=== PATIENT | female | born 1935 | race Caucasian/White ===

== ENCOUNTER 2024-04-21 17:34 | Emergency (ER) | payer MEDICARE, BC ==
[~2024-04-21] VITALS: Ht 152.4 cm; Wt 53.1 kg
[~2024-04-21 17:34] MED LIST: AZIT250 PO; CELE200 PO; DIALYVITE 8001 EACH; ENOX30I SQ; ERGO50000; HYDACE5 PO; HYDACE5325 PO; IVERMECTIN3 MG PO; ONDA4 PO; ONDA4ODT MM; ONE DAILY FOR1 EACH; OXYACE5T PO; PROM25 PO
[2024-04-21] MEDS ORDERED: NS 500 ML IV SCH (18:20)
[2024-04-21 18:52] LABS: BASOPHILS ABSOLUTE AUTO 0.01 K/mm3 (0.00-0.23); BASOPHILS PERCENT AUTO 0 % (0-2); EOSINOPHILS ABSOLUTE AUTO 0.01 K/mm3 (0.00-0.68); EOSINOPHILS PERCENT AUTO 0 % (0-6); Hematocrit 32.2 % (33.0-51.0); Hemoglobin 10.8 g/dL (11.5-16.0); IMMATURE GRAN ABSOLUTE AUTO 0.07 K/mm3 (0.00-0.10); IMMATURE GRAN PERCENT AUTO 1 % (0-1); LYMPHOCYTES ABSOLUTE AUTO 0.82 K/mm3 (0.84-5.20); LYMPHOCYTES PERCENT AUTO 7 % (21-46); MONOCYTES PERCENT AUTO 11 % (4-13); Mean Corpuscular HGB 29.5 pg (26.0-34.0); Mean Corpuscular HGB Conc 33.5 g/dL (31.5-36.5); Mean Corpuscular Volume 88 fL (80-100); Mean Platelet Volume 9.7 fL (9.1-12.4); NEUTROPHILS ABSOLUTE AUTO 10.34 K/mm3 (1.96-9.15); NEUTROPHILS PERCENT AUTO 82 % (41-73); Platelet Count 294 K/mm3 (150-400); RDW Coefficient Variation 15.9 % (11.7-14.2); Red Blood Cell Count 3.66 M/mm3 (3.80-5.20); White Blood Cell Count 12.65 K/mm3 (4.00-11.30)
[2024-04-21] MEDS ORDERED: ACET325 PO (18:52)
[2024-04-21 19:05] LABS: Source, Urine Clean Catch
[2024-04-21 19:11] LABS: Bun/Creatinine Ratio 27.7 (12.0-20.0); Calcium, Blood 10.3 mg/dL (8.5-10.1); Creatinine, Blood 0.87 mg/dL (0.40-1.00); Potassium, Blood 4.6 mmol/L (3.5-5.5)
[2024-04-21 19:13] LABS: Appearance, Urine Hazy (Clear); Bilirubin, Urine Neg (Neg); Blood, Urine 4+ (Neg); Color, Urine Yellow (P-Yellow); Glucose Qualitative, Urine Neg (Neg); Ketones, Urine Neg (Neg); Leukocyte Esterase, Urine 3+ (Neg); Nitrite, Urine Neg (Neg); Protein, Urine 2+ (Neg); Urobilinogen, Urine NORM (Normal)
[2024-04-21 19:21] LABS: Bacteria Mod /hpf; Calcium Oxalate Crystals Many /hpf; Red Blood Cells, Urine 0-2 /hpf (0-2); Squamous Epithelial Cells Few /hpf (Few)
[2024-04-21 19:35] LABS: CORONAVIRUS COVID-19 AG Negative (NEGATIVE); INFLUENZA A AG Negative (NEGATIVE); INFLUENZA B AG Negative (NEGATIVE)
[2024-04-21] MEDS ORDERED: Ipratropium/Albuterol SulF 2.5-0.5MG/3 ML Amp INH ONE (21:00)
[2024-04-21] MEDS ORDERED: CefTRIAXone Sodium 1,000 MG in NS 100 ML IV ONE (21:00)
[2024-04-21] MEDS ORDERED: Mag Sulfate 1 GM/D5% 100ML 100 ML IV ONE (21:00)
[2024-04-21] MEDS ORDERED: LEVFLO500 PO (22:27)
[2024-04-21] MEDS ORDERED: LEVOFLOXACIN250 M1 PO (22:30)
[2024-04-21 22:45] VITALS: BP 120/55
== END 2024-04-21 22:51 | disposition home or self-care (01) ==
LOC: ER 17:34
PROVIDERS: Emergency Medicine
DX: R91.8 Other nonspecific abnormal finding of lung field (principal); N39.0 Urinary tract infection, site not specified; E86.0 Dehydration; E87.1 Hypo-osmolality and hyponatremia; Z87.891 Personal history of nicotine dependence; Z88.5 Allergy status to narcotic agent
CPT/HCPCS: 71260; 80048; 81001; 85025; 87086; 87428-QW; 93005; 93010; 94640; 94664; 96365-59; 96375; 99285-25; J0696; J3475; J7030; Q9967

== ENCOUNTER 2024-04-23 11:32 | Emergency (ER) | payer MEDICARE, BC ==
[~2024-04-23] VITALS: Ht 152.4 cm; Wt 53.1 kg
[~2024-04-23 11:32] MED LIST changes: +ACET325 PO; +LEVFLO500 PO; +LEVOFLOXACIN250 M1 PO
[2024-04-23 12:11] LABS: BASOPHILS ABSOLUTE AUTO 0.02 K/mm3 (0.00-0.23); BASOPHILS PERCENT AUTO 0 % (0-2); EOSINOPHILS PERCENT AUTO 0 % (0-6); Hematocrit 30.7 % (33.0-51.0); Hemoglobin 10.4 g/dL (11.5-16.0); IMMATURE GRAN ABSOLUTE AUTO 0.14 K/mm3 (0.00-0.10); IMMATURE GRAN PERCENT AUTO 1 % (0-1); LYMPHOCYTES ABSOLUTE AUTO 0.47 K/mm3 (0.84-5.20); LYMPHOCYTES PERCENT AUTO 3 % (21-46); MONOCYTES ABSOLUTE AUTO 1.28 K/mm3 (0.16-1.47); MONOCYTES PERCENT AUTO 9 % (4-13); Mean Corpuscular HGB 29.7 pg (26.0-34.0); Mean Corpuscular HGB Conc 33.9 g/dL (31.5-36.5); Mean Corpuscular Volume 88 fL (80-100); Mean Platelet Volume 9.2 fL (9.1-12.4); NEUTROPHILS ABSOLUTE AUTO 12.08 K/mm3 (1.96-9.15); NEUTROPHILS PERCENT AUTO 86 % (41-73); Platelet Count 308 K/mm3 (150-400); RDW Coefficient Variation 15.7 % (11.7-14.2); RDW Standard Deviation 50.7 fL (35.1-46.3); White Blood Cell Count 13.99 K/mm3 (4.00-11.30)
[2024-04-23 12:34] LABS: Albumin, Blood 2.2 g/dL (3.4-5.0); Albumin/Globulin Ratio 0.5 (0.8-1.8); Bilirubin, Total 0.5 mg/dL (0.1-1.0); Bun/Creatinine Ratio 16.9 (12.0-20.0); Creatinine, Blood 0.65 mg/dL (0.40-1.00); Globulin, Blood 4.1 g/dL (2.2-4.0); Potassium, Blood 3.7 mmol/L (3.5-5.5); Total Protein, Blood 6.3 g/dL (6.4-8.2)
[2024-04-23] MEDS ORDERED: NS 1,000 ML IV SCH (15:55)
[2024-04-23] MEDS ORDERED: Ipratropium/Albuterol SulF 2.5-0.5MG/3 ML Amp INH ONE (17:50)
[2024-04-23 18:15] VITALS: BP 122/68
== END 2024-04-23 18:43 | disposition home or self-care (01) ==
LOC: ER 11:32
PROVIDERS: Physician Assistant
DX: J18.1 Lobar pneumonia, unspecified organism (principal); E86.0 Dehydration; Z88.5 Allergy status to narcotic agent; Z79.899 Other long term (current) drug therapy
CPT/HCPCS: 71045; 80053; 85025; 93005; 93010; 94640; 94664; 99285-25; J7030

== ENCOUNTER 2024-04-25 23:03 | Inpatient (IN) | payer MEDICARE, BC ==
[~2024-04-25] VITALS: Ht 152.4 cm; Wt 56.1 kg
[2024-04-26] MEDS ORDERED: Ketorolac Tromethamine 30mg Vial IV ONE (01:00)
[2024-04-26 01:02] LABS: BASOPHILS ABSOLUTE AUTO 0.05 K/mm3 (0.00-0.23); BASOPHILS PERCENT AUTO 0 % (0-2); EOSINOPHILS ABSOLUTE AUTO 0.05 K/mm3 (0.00-0.68); EOSINOPHILS PERCENT AUTO 0 % (0-6); Hematocrit 37.2 % (33.0-51.0); Hemoglobin 12.5 g/dL (11.5-16.0); IMMATURE GRAN PERCENT AUTO 1 % (0-1); LYMPHOCYTES ABSOLUTE AUTO 0.64 K/mm3 (0.84-5.20); LYMPHOCYTES PERCENT AUTO 4 % (21-46); MONOCYTES ABSOLUTE AUTO 0.34 K/mm3 (0.16-1.47); MONOCYTES PERCENT AUTO 2 % (4-13); Mean Corpuscular HGB 29.4 pg (26.0-34.0); Mean Corpuscular HGB Conc 33.6 g/dL (31.5-36.5); Mean Corpuscular Volume 88 fL (80-100); Mean Platelet Volume 9.3 fL (9.1-12.4); NEUTROPHILS ABSOLUTE AUTO 13.57 K/mm3 (1.96-9.15); NEUTROPHILS PERCENT AUTO 92 % (41-73); Platelet Count 477 K/mm3 (150-400); RDW Coefficient Variation 15.9 % (11.7-14.2); RDW Standard Deviation 51.3 fL (35.1-46.3); Red Blood Cell Count 4.25 M/mm3 (3.80-5.20); White Blood Cell Count 14.85 K/mm3 (4.00-11.30)
[2024-04-26 01:21] LABS: Albumin, Blood 2.5 g/dL (3.4-5.0); Albumin/Globulin Ratio 0.5 (0.8-1.8); Bilirubin, Total 0.7 mg/dL (0.1-1.0); Bun/Creatinine Ratio 14.1 (12.0-20.0); Calcium, Blood 10.5 mg/dL (8.5-10.1); Creatinine, Blood 0.71 mg/dL (0.40-1.00); Globulin, Blood 4.7 g/dL (2.2-4.0); Potassium, Blood 3.9 mmol/L (3.5-5.5); Total Protein, Blood 7.2 g/dL (6.4-8.2)
[2024-04-26 02:52] LABS: International Normalized Ratio 1.13
[2024-04-26] MEDS ORDERED: FLU VACC TS2024-25(6MOS UP)/PF 45 MCG/0.5 ML SYRINGE IM ONE (04:25)
[2024-04-26] MEDS ORDERED: Azithromycin 500 MG in NS 250 ML IV SCH (04:48)
[2024-04-26] MEDS ORDERED: Ampicillin Sod/Sulbactam Sod 3 GM in NS 100 ML IV SCH (04:49)
[2024-04-26 06:29] LABS: BASOPHILS ABSOLUTE AUTO 0.08 K/mm3 (0.00-0.23); BASOPHILS PERCENT AUTO 0 % (0-2); EOSINOPHILS ABSOLUTE AUTO 0.01 K/mm3 (0.00-0.68); EOSINOPHILS PERCENT AUTO 0 % (0-6); Hematocrit 31.3 % (33.0-51.0); Hemoglobin 10.8 g/dL (11.5-16.0); IMMATURE GRAN ABSOLUTE AUTO 0.29 K/mm3 (0.00-0.10); IMMATURE GRAN PERCENT AUTO 1 % (0-1); LYMPHOCYTES ABSOLUTE AUTO 0.64 K/mm3 (0.84-5.20); LYMPHOCYTES PERCENT AUTO 2 % (21-46); MONOCYTES ABSOLUTE AUTO 0.81 K/mm3 (0.16-1.47); MONOCYTES PERCENT AUTO 3 % (4-13); Mean Corpuscular HGB 29.6 pg (26.0-34.0); Mean Corpuscular HGB Conc 34.5 g/dL (31.5-36.5); Mean Corpuscular Volume 86 fL (80-100); Mean Platelet Volume 8.7 fL (9.1-12.4); NEUTROPHILS ABSOLUTE AUTO 25.65 K/mm3 (1.96-9.15); NEUTROPHILS PERCENT AUTO 93 % (41-73); Platelet Count 335 K/mm3 (150-400); RDW Coefficient Variation 15.6 % (11.7-14.2); RDW Standard Deviation 49.1 fL (35.1-46.3); Red Blood Cell Count 3.65 M/mm3 (3.80-5.20); White Blood Cell Count 27.48 K/mm3 (4.00-11.30)
[2024-04-26 06:51] LABS: Albumin, Blood 1.8 g/dL (3.4-5.0); Albumin/Globulin Ratio 0.5 (0.8-1.8); Bilirubin, Total 0.6 mg/dL (0.1-1.0); Bun/Creatinine Ratio 16.1 (12.0-20.0); Calcium, Blood 9.6 mg/dL (8.5-10.1); Creatinine, Blood 0.62 mg/dL (0.40-1.00); Globulin, Blood 3.7 g/dL (2.2-4.0); Magnesium, Blood 1.3 mg/dL (1.6-2.4); Potassium, Blood 3.8 mmol/L (3.5-5.5); Total Protein, Blood 5.5 g/dL (6.4-8.2)
[2024-04-26] MEDS ORDERED: Lactobacil 2-S.Thermo-Bifido 1 1 Cap PO SCH (09:00)
[2024-04-26] MEDS ORDERED: OMEP20ER PO (14:14)
[2024-04-26] MEDS ORDERED: CLOT10 MT (14:15)
[2024-04-26] MEDS ORDERED: ONDA4ODT MM (14:15)
[2024-04-26] MEDS ORDERED: FURO20 PO (14:15)
[2024-04-26] MEDS ORDERED: POTA10T PO (14:16)
[2024-04-26 14:25] VITALS: BP 118/62
[2024-04-26 16:14] VITALS: BP 135/71
--- NOTE | 2024-04-26 17:44 | NUR ---
"Spritual Care Visit | Pt. request. Pt is awake in bed surrounded by family. Facilitated a short life review and listened with interest and emptahy. Pt.is very pleasant. Considered matters of family, wendy, and belief. Pt. displayed evidence of being engaged and aware. Prayed with the Pt. Pt. verbalized gratitude for the spiritual care visit."
[2024-04-26] MEDS ORDERED: NS 250 ML IV PRN (17:55)
[2024-04-26] MEDS ORDERED: Clotrimazole 10 MG Troche MT SCH (18:00)
--- NOTE | 2024-04-26 19:51 | NUR ---
ADMISSION NOTE/SHIFT SUMMARY PATIENT ADMITTED THIS AFTERNOON FOR PLEURITIC CHEST PAIN WITH DIAGNOSIS OF PNA AND LUNG MASS. PATIENT A/OX4, ABLE TO MAKE NEEDS KNOWN. FAMILY AT BEDSIDE. 1 PERSON ASSIST WITH WALKER. PATIENT STATES SHE WAS RECENTLY DIAGNOSED WITH ORAL THRUSH, MD NOTIFIED AND HOME MEDICATION RESTARTED. TELEMETRY IN PLACE, NO EVENTS NOTED SINCE ADMISSION. BLANCHABLE REDNESS NOTED TO COCCYX AND BROWN SPOTTED DISCOLORATION NOTED TO BLE WITH EDEMA. NO OTHER CONCERNS AT THIS TIME. REPORT GIVEN TO MEN'S GARMENT FITTER RN.
--- NOTE | 2024-04-26 19:58 | NUR ---
STUDENT NURSE COMPLETED ADMISSION DOCUMENTATION IS ACCURATE AND REVIEWED AND ASSISTED BY THIS RN.
[2024-04-26 21:57] VITALS: BP 142/67
[2024-04-26] MEDS ORDERED: Magnesium Sulf 2 GM/Water 50ML 50 ML IV ONE (23:15)
[2024-04-27] VITALS (8 sets, daily range): BP systolic 99–131; BP diastolic 48–77
[2024-04-27] MEDS ORDERED: Acetaminophen 325 MG TABLET PO PRN (01:15)
--- NOTE | 2024-04-27 05:06 | NUR ---
SHIFT SUMMARY PT A&Ox3 AND PLEASANT. FORGETFUL AND IMPULSIVE. BED ALARM ON T/O NIGHT. IV ABX AND MAGNESIUM REPLACMENT GIVEN PER EMAR. PT ON RA AND MANTIAINS SATS >93% PER CONTINIOUS BIOX. HOWEVER, PT BECOMES SOB AND TACHY WITH ACTIVITY. NO EVENTS ON TELE. VSS AND PT AFEBRILE T/O NIGHT. NO C/O PAIN. BED IN LOWEST POSITION AND CALL LIGHT IN REACH.
[2024-04-27 05:19] LABS: BASOPHILS ABSOLUTE AUTO 0.05 K/mm3 (0.00-0.23); BASOPHILS PERCENT AUTO 0 % (0-2); EOSINOPHILS ABSOLUTE AUTO 0.01 K/mm3 (0.00-0.68); EOSINOPHILS PERCENT AUTO 0 % (0-6); Hematocrit 31.1 % (33.0-51.0); Hemoglobin 10.6 g/dL (11.5-16.0); IMMATURE GRAN ABSOLUTE AUTO 0.49 K/mm3 (0.00-0.10); IMMATURE GRAN PERCENT AUTO 2 % (0-1); LYMPHOCYTES ABSOLUTE AUTO 0.85 K/mm3 (0.84-5.20); LYMPHOCYTES PERCENT AUTO 3 % (21-46); MONOCYTES ABSOLUTE AUTO 1.07 K/mm3 (0.16-1.47); MONOCYTES PERCENT AUTO 4 % (4-13); Mean Corpuscular HGB 29.4 pg (26.0-34.0); Mean Corpuscular HGB Conc 34.1 g/dL (31.5-36.5); Mean Corpuscular Volume 86 fL (80-100); Mean Platelet Volume 8.9 fL (9.1-12.4); NEUTROPHILS ABSOLUTE AUTO 25.73 K/mm3 (1.96-9.15); NEUTROPHILS PERCENT AUTO 91 % (41-73); Platelet Count 424 K/mm3 (150-400); RDW Coefficient Variation 15.7 % (11.7-14.2)
[2024-04-27 05:48] LABS: Magnesium, Blood 1.8 mg/dL (1.6-2.4)
[2024-04-27 05:53] LABS: Albumin, Blood 1.6 g/dL (3.4-5.0); Albumin/Globulin Ratio 0.4 (0.8-1.8); Bilirubin, Total 0.5 mg/dL (0.1-1.0); Bun/Creatinine Ratio 15.2 (12.0-20.0); Calcium, Blood 9.5 mg/dL (8.5-10.1); Creatinine, Blood 0.66 mg/dL (0.40-1.00); Globulin, Blood 3.6 g/dL (2.2-4.0); Potassium, Blood 3.8 mmol/L (3.5-5.5); Total Protein, Blood 5.2 g/dL (6.4-8.2)
[2024-04-27] MEDS ORDERED: Metoprolol Tartrate 25 MG Tab PO ONE (07:00)
[2024-04-27] MEDS ORDERED: Enoxaparin 40 MG/0.4 ML SYR SC SCH (09:00)
[2024-04-27] MEDS ORDERED: Digoxin 0.25 MG in NS 4 ML IV SCH (15:00)
[2024-04-27] MEDS ORDERED: Digoxin 0.25 MG/ML 2ML Amp IV SCH (15:00)
--- NOTE | 2024-04-27 19:30 | NUR ---
PT A&OX4, AFIB 110-150 ON TELE, WORSENING BLE EDEMA NOTED +2, MD AWARE, NEW ORDER OF DIGOXEN X 2 ADMINISTERED WITH TEMPORARY HR REDUCTION TO 100-110. 1 PERSON ASSIST TO BATHROOM. EXPIRATORY WHEEZES NOTED, RA, NO C/O PAIN. PT RESTING IN BED, CALL LIGHT IN REACH, FAMILY AT BEDSIDE ASSISTING PT.
[2024-04-27] MEDS ORDERED: GuaiFENesin 600 MG TabCR PO SCH (21:00)
[2024-04-27] MEDS ORDERED: Latanoprost 0.005% Opth Soln 2.5 ML BOTHEYES ONE (21:55)
[2024-04-28 00:05] VITALS: BP 117/60
[2024-04-28 04:22] VITALS: BP 128/74
--- NOTE | 2024-04-28 05:01 | NUR ---
SHIFT SUMMARY PT ALERT ORIENTED X 4 CALLS OUT APPROPRIATELY. GETS UP TO BATHROOM WITH SBA. REMAINS ON TELEMETRY AT A FIB AT 103. REMAINS ON UNASYN Q6HR AND ZITHROMAX QDAY. SHES A DAILY WEIGHT AND STRICT I&O. HER HR IS MORE CONTROLLED THIS SHIFT SINCE GETTING THE TWO DOSES OF DIGOXIN. VSS ON RA SATTING AT 92%. REMAINS WITH GENERALIZED EDEMA. NO C/O CHEST PAIN OR PRESSURE THIS SHIFT. CONTINUES ON A CONTINUOUS PULSE OX. RESTING IN BED AT THIS TIME WITH CALL LIGHT IN REACH
[2024-04-28 07:17] VITALS: BP 126/62
[2024-04-28 09:19] LABS: Total Protein, Blood 5.9 g/dL (6.4-8.2)
[2024-04-28 12:15] LABS: Automated BF RBC Count 0.011 M/mm3 (0-0); Automated BF WBC Count 1.324 K/mm3 (0-999)
[2024-04-28 12:19] LABS: Body Fluid WBC Count 1324 /mm3 (0-999); RBC Count, Body Fluid 11000 /mm3 (0-0)
[2024-04-28 12:23] VITALS: BP 126/72
[2024-04-28 12:34] LABS: Albumin, Body Fluid 0.9 g/dL; Glucose, Body Fluid 64 mg/dL; Lactate Dehydrogenase, Body Fl 808 U/L; Protein, Body Fluid 2.6 g/dL
[2024-04-28 12:54] LABS: Appearance, Body Fluid Hazy (Clear); Color, Body Fluid L Yellow (None-Yellow)
[2024-04-28 13:01] LABS: Total Cell Count, Body Fluid 100
[2024-04-28] MEDS ORDERED: Albumin (Human) 25gm/100ml 100 ML IV SCH (14:00)
[2024-04-28] MEDS ORDERED: Thiamine HCl 100 MG Tab PO SCH (14:00)
[2024-04-28] MEDS ORDERED: Furosemide 10 MG / ML 2ML Vial IV SCH (14:00)
[2024-04-28] MEDS ORDERED: Multivitamins 1 Tab PO SCH (14:05)
[2024-04-28 14:15] LABS: Hematocrit 35.9 % (33.0-51.0); Mean Corpuscular HGB 29.1 pg (26.0-34.0); Mean Corpuscular HGB Conc 33.4 g/dL (31.5-36.5); Mean Corpuscular Volume 87 fL (80-100); Mean Platelet Volume 8.6 fL (9.1-12.4); Platelet Count 506 K/mm3 (150-400); RDW Coefficient Variation 15.8 % (11.7-14.2); RDW Standard Deviation 50.1 fL (35.1-46.3); Red Blood Cell Count 4.13 M/mm3 (3.80-5.20); White Blood Cell Count 24.08 K/mm3 (4.00-11.30)
[2024-04-28 14:38] LABS: Albumin, Blood 1.6 g/dL (3.4-5.0); Albumin/Globulin Ratio 0.4 (0.8-1.8); Bilirubin, Total 0.4 mg/dL (0.1-1.0); Bun/Creatinine Ratio 20.8 (12.0-20.0); Calcium, Blood 9.8 mg/dL (8.5-10.1); Creatinine, Blood 0.67 mg/dL (0.40-1.00); Globulin, Blood 4.2 g/dL (2.2-4.0); Phosphorus, Blood 2.8 mg/dL (2.5-4.9); Total Protein, Blood 5.8 g/dL (6.4-8.2)
[2024-04-28 14:43] LABS: BAND PERCENT MAN 4 % (0-8); BASOPHILS PERCENT MAN 0 % (0-2); EOSINOPHILS PERCENT MAN 0 % (0-6); LYMPHOCYTES PERCENT MAN 5 % (21-46); METAMYELOCYTE ABSOLUTE MAN 0.24 K/mm3 (0.00-0.00); METAMYELOCYTE PERCENT MAN 1 % (0-0); MONOCYTES ABSOLUTE MAN 0.96 K/mm3 (0.16-1.47); MONOCYTES PERCENT MAN 4 % (4-13); NEUTROPHILS ABSOLUTE MAN 21.67 K/mm3 (1.96-9.15); SEG NEUTROPHILS PERCENT MAN 86 % (41-73); TOTAL CELLS COUNTED 100
[2024-04-28 16:38] VITALS: BP 121/86
--- NOTE | 2024-04-28 17:59 | NUR ---
SUMMARY NO ACUTE CHANGES THIS SHIFT. PT DENIES CHEST PAIN. TELE, AFIB HR SUSTAINED 90S THROUGHOUT SHIFT. PT FAMILY REMAIN AT BEDSIDE. PT IS ALERT AND ORIENTED X4, ABLE TO EXPRESS NEEDS. LLE EDEMA NOTED. 1 PERSON ASSIST WITH FWW TO BATHROOM. THORACENTESIS TODAY, LABS PENDING. 5 ML OUT. IV ANTIBIOTICS CONTINUED.
[2024-04-28 21:53] VITALS: BP 115/64
--- NOTE | 2024-04-29 04:14 | NUR ---
SHIFT SUMMARY PT ALERT ORIENTED X 4 ABLE TO VERBALIZE NEEDS GETS UP AND AMBULATES TO THE COMMODE OR TO THE BATHROOM WITH WALKER AND SBA. NO C/O PAIN REMAINS WITH GENERALIZED EDEMA ALL THROUGHOUT HER BODY. SHE WAS STARTED ON ALBUMIN AND LASIX YESTERDAY. REMAINS ON UNASYN AND ZITHROMAX ORDERED FOR PNEUMONIA. SHE HAD A THORACENTESIS YESTERDAY BUT THEY ONLY GOT OUT 5ML. REMAINS ON TELEMETRY AT AFIB IN THE 90'S. VSS ON 2L. CONTINUES ON A CONTINUOUS PULSE OX. RESTING IN BED AT THIS TIME WITH CALL LIGHT IN REACHY
[2024-04-29 05:02] VITALS: BP 118/63
[2024-04-29 06:15] LABS: Bun/Creatinine Ratio 21.8 (12.0-20.0); Calcium, Blood 9.4 mg/dL (8.5-10.1); Creatinine, Blood 0.64 mg/dL (0.40-1.00); Magnesium, Blood 1.7 mg/dL (1.6-2.4); Potassium, Blood 3.4 mmol/L (3.5-5.5)
[2024-04-29 07:19] VITALS: BP 116/61
[2024-04-29] MEDS ORDERED: Potassium Chloride 20 MEQ TabCR PO ONE (10:00)
[2024-04-29 16:21] VITALS: BP 119/55
[2024-04-29] MEDS ORDERED: Spironolactone 25 MG Tab PO SCH (18:00)
--- NOTE | 2024-04-29 19:08 | NUR ---
SUMMARY NO ACUTE CHANGES THIS SHIFT. PT FAMILY AT BEDSIDE. ABLE TO EXPRESS NEEDS. SBA TO BEDSIDE COMMODE. ORIENTED X4
[2024-04-29 20:41] VITALS: BP 131/81
[2024-04-29 23:54] VITALS: BP 122/69
--- NOTE | 2024-04-30 04:14 | NUR ---
SHIFT SUMMARY PT ALERT ORIENTED ABLE TO VERBALIZE NEEDS GETS UP TO COMMODE WITH SBA. NO C/O PAIN THIS SHIFT. REMAINS ON A CONTINUOUS PULSE OX VSS SATTING AT 96% ON 2L VIA NC. REMAINS ON UNASYN Q6HR AND ZITHROMAX QDAY FOR PNEUMONIA. SHE HAS SOB ON EXERTION. SHES ON A DAILY WEIGHT. CONTINUES WITH GENERALIZED EDEMA ANS EDEMA TO BLE. SHE REMAINS ON ALBUMIN AND LASIX AND THIS HAS BEEN HELPING WITH THE EDEMA. SHE HAS THRUSH TO HER MOUTH BUT REFUSED THE TABS THAT SHES TAKING STATING THAT THEY MAKE HER MOUTH HURT MORE. HER FAMILY COMES IN AND VISITS. SHES RESTING IN BED AT THIS TIME WITH CALL LIGHT IN REACH AND BED ALARM ON.
[2024-04-30 05:21] VITALS: BP 113/55
[2024-04-30 05:32] LABS: BASOPHILS ABSOLUTE AUTO 0.03 K/mm3 (0.00-0.23); BASOPHILS PERCENT AUTO 0 % (0-2); EOSINOPHILS ABSOLUTE AUTO 0.03 K/mm3 (0.00-0.68); EOSINOPHILS PERCENT AUTO 0 % (0-6); Hematocrit 27.7 % (33.0-51.0); Hemoglobin 9.2 g/dL (11.5-16.0); IMMATURE GRAN ABSOLUTE AUTO 0.19 K/mm3 (0.00-0.10); IMMATURE GRAN PERCENT AUTO 2 % (0-1); LYMPHOCYTES PERCENT AUTO 6 % (21-46); MONOCYTES PERCENT AUTO 9 % (4-13); Mean Corpuscular HGB 29.3 pg (26.0-34.0); Mean Corpuscular HGB Conc 33.2 g/dL (31.5-36.5); Mean Corpuscular Volume 88 fL (80-100); Mean Platelet Volume 8.6 fL (9.1-12.4); NEUTROPHILS ABSOLUTE AUTO 10.69 K/mm3 (1.96-9.15); NEUTROPHILS PERCENT AUTO 83 % (41-73); Platelet Count 480 K/mm3 (150-400); RDW Coefficient Variation 15.5 % (11.7-14.2); RDW Standard Deviation 49.8 fL (35.1-46.3); Red Blood Cell Count 3.14 M/mm3 (3.80-5.20); White Blood Cell Count 12.84 K/mm3 (4.00-11.30)
[2024-04-30] MEDS ORDERED: Azithromycin 250 MG Tab PO SCH (06:00)
[2024-04-30 06:07] LABS: Albumin, Blood 2.3 g/dL (3.4-5.0); Albumin/Globulin Ratio 0.7 (0.8-1.8); Bilirubin, Total 0.6 mg/dL (0.1-1.0); Bun/Creatinine Ratio 20.5 (12.0-20.0); Calcium, Blood 9.6 mg/dL (8.5-10.1); Creatinine, Blood 0.63 mg/dL (0.40-1.00); Globulin, Blood 3.3 g/dL (2.2-4.0); Potassium, Blood 3.1 mmol/L (3.5-5.5); Total Protein, Blood 5.6 g/dL (6.4-8.2)
[2024-04-30 08:46] VITALS: BP 120/65
[2024-04-30] MEDS ORDERED: Spironolactone 50 MG Tab PO SCH (09:00)
[2024-04-30] MEDS ORDERED: Spironolactone 25 MG Tab PO ONE (10:50)
[2024-04-30] MEDS ORDERED: Nystatin 100,000 Unit/ML Susp 5 ML UDC SS SCH (13:00)
--- NOTE | 2024-04-30 14:02 | NUR ---
CODE STATUS UPDATE TO DNR, SELECTIVE TREATMENT SUPPORTIVE VISIT: MET WITH PT, WHO LIKES TO BE ADDRESSED "AMBROSIO", AND HER DTR MARIAN. AMBROSIO IS A/O X4. PLEASANT. ABLE TO MAKE NEEDS KNOWN. PT REPORTS BEING INDEPENDENT A COUPLE OF MONTHS AGO. 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 SHE EATS TWICE DAILY, PRIMARILY BEANS, LENTALS, JUICING (VEGAN DIET). AMBROSIO HAS BEEN SEEKING CANCER TREATMENTS AND EXPRESSED WANTING TO CONTINUE TO EXPLORE ADDITIONAL TREATMENT OPTIONS UPON D/C FROM HOSPITAL. DTR-MARIAN REPORTS PT IS SET TO SEE DR. SINGH AT [facility] AFTER D/C. [facility] FORM FILLED OUT TO REFLECT DNR/SELECTIVE TX, SIGNED BY PROVIDER, COPIES SENT TO [facility] AND [place] [facility]. ORIGINAL POLST FORM GIVEN TO PT/DTR. PLAN: PROVIDER TO PLACE DNR. CONTINUE CURRENT TREATMENT REGIMENT.
[2024-04-30 15:34] VITALS: BP 121/59
--- NOTE | 2024-04-30 18:03 | NUR ---
SHIFT SUMMARY PT AOX4, SBA C FWW TO THE BR. DAUGHTER IS AT THE BS AND HELPS OUT OFTEN. REPOSITIONED THROUGHOUT THE SHIFT, UP TO THE CHAIR THIS EVENING. NO ACUTE COMPLAINTS BY THE PT. SHE CALLS AND MAKES HER NEEDS KNOWN. NO EVENTS PER TELE. CALL LIGHT WITHIN REACH, BED LOCKED AND IN THE LOWEST POSITION. WILL REPORT TO ONCOMING NURSE.
--- NOTE | 2024-04-30 18:14 | NUR ---
NOTE: PT AND FAMILY EDUCATED ABOUT THE IMPORTANCE OF WEARING THE NO-SLIP SOCKS WHILE TRANSFERRING TO THE BATHROOM. DAUGHTER INFORMED BECAUSE SHE OFTEN TRANSFERS HER TO THE BATHROOM. THE PT WAS OBSERVED NOT WEARING THE NO SLIP SOCKS WHILE TRANSFERRING AND THE PATIENT AND DAUGHTER WERE EDUCATED, AGAIN, ABOUT THE IMPORTANCE OF PATIENT SAFETY AND THE NEED TO WEAR PROPER SAFE GEAR WHILE TRANSFERRING OUTSIDE OF THE BED.
--- NOTE | 2024-04-30 18:31 | NUR ---
FAMILY SEEMS UNWELCOMING WHEN OFFERING TO CARE FOR THE PATIENT, THEY DECLINE FOR PATIENT, AND SEEMS IF THEY WANT THEIR PRIVACY.
[2024-04-30] MEDS ORDERED: Potassium Chloride 20 MEQ TabCR PO SCH (19:00)
[2024-04-30 20:51] VITALS: BP 125/67
[2024-05-01 00:18] VITALS: BP 107/57
[2024-05-01 06:12] VITALS: BP 111/59
[2024-05-01 06:35] LABS: BASOPHILS ABSOLUTE AUTO 0.02 K/mm3 (0.00-0.23); BASOPHILS PERCENT AUTO 0 % (0-2); EOSINOPHILS ABSOLUTE AUTO 0.03 K/mm3 (0.00-0.68); EOSINOPHILS PERCENT AUTO 0 % (0-6); Hematocrit 26.7 % (33.0-51.0); Hemoglobin 8.9 g/dL (11.5-16.0); IMMATURE GRAN ABSOLUTE AUTO 0.15 K/mm3 (0.00-0.10); IMMATURE GRAN PERCENT AUTO 1 % (0-1); LYMPHOCYTES ABSOLUTE AUTO 0.89 K/mm3 (0.84-5.20); LYMPHOCYTES PERCENT AUTO 7 % (21-46); MONOCYTES ABSOLUTE AUTO 0.99 K/mm3 (0.16-1.47); MONOCYTES PERCENT AUTO 8 % (4-13); Mean Corpuscular HGB 29.9 pg (26.0-34.0); Mean Corpuscular HGB Conc 33.3 g/dL (31.5-36.5); Mean Corpuscular Volume 90 fL (80-100); Mean Platelet Volume 8.9 fL (9.1-12.4); NEUTROPHILS ABSOLUTE AUTO 10.54 K/mm3 (1.96-9.15); NEUTROPHILS PERCENT AUTO 84 % (41-73); Platelet Count 493 K/mm3 (150-400); RDW Coefficient Variation 15.4 % (11.7-14.2); RDW Standard Deviation 50.7 fL (35.1-46.3); Red Blood Cell Count 2.98 M/mm3 (3.80-5.20); White Blood Cell Count 12.62 K/mm3 (4.00-11.30)
[2024-05-01 06:51] LABS: Albumin, Blood 2.6 g/dL (3.4-5.0); Albumin/Globulin Ratio 0.9 (0.8-1.8); Bilirubin, Total 0.8 mg/dL (0.1-1.0); Calcium, Blood 9.7 mg/dL (8.5-10.1); Creatinine, Blood 0.61 mg/dL (0.40-1.00); Total Protein, Blood 5.6 g/dL (6.4-8.2)
[2024-05-01 07:03] VITALS: BP 114/70
[2024-05-01] MEDS ORDERED: Amoxicillin/Clavulanate K 875 MG Tab PO SCH (09:00)
--- NOTE | 2024-05-01 09:58 | NUR ---
SHOWER OFFERED AND BATHROOM SET UP FOR SHOWER, PATIENT DECLINED AT THIS TIME. OFFERED ORAL CARE AND HAIR CARE OFFERED, DECLINED AT THIS TIME. CALL LIGHT AND PHONE IN REACH, MEAL TRAY SET UP,
[2024-05-01] MEDS ORDERED: NYSTATIN100000 U10 MT (14:17)
[2024-05-01] MEDS ORDERED: AMOCLA875 PO (14:18)
--- NOTE | 2024-05-01 14:57 | NUR ---
DISCHARGE NOTE PT DISCHARGED TO HOME, PICKED UP BY HER DAUGHTER. TAKEN TO THEIR VEHICLE BY WHEELCHAIR. TELE RETURNED. IV REMOVED. DISCHARGE INFORMATION REVIEWED WITH PT AND DAUGHTER. MEDICATIONS FAXED TO THE PHARMACY OF HER CHOICE. PERSONAL BELONGINGS RETURNED.
--- NOTE | 2024-05-01 15:16 | NUR ---
SUPPORTIVE VISIT WITH PT AND HER DTR THIS MORNING. AMBROSIO IS DISCHARGING HOME THIS AFTERNOON. DTR WILL BE CALLING [facility] TO SCHEDULE AN APPT. THIS PC RN ENCOURAGED PT AND DTR TO REACH OUT TO [facility] HI LIFT OPERATOR FOR RECOMMENDATIONS FOR ADDED NUTRITION WITH VEGAN OPTIONS TO PROMOTE STRENGTH AND HEALING.
== END 2024-05-01 14:56 | disposition home health service (06) | DRG 193 ==
LOC: ER 23:03 → ERHOLD 23:04 → MEDS 04-26 14:04
PROVIDERS: Emergency Medicine; Family Medicine; Hospitalist; Internal Medicine Critical Care Medicine; ADMIT Student in an Organized Health Care Education/Training Program
PROC: 30233J1 Transfusion of Nonautologous Serum Albumin into Peripheral Vein, Percutaneous Approach (ICD-10-PCS; principal; 2024-04-28)
DX: J18.9 Pneumonia, unspecified organism (principal); E43 Unspecified severe protein-calorie malnutrition; J96.01 Acute respiratory failure with hypoxia; E87.1 Hypo-osmolality and hyponatremia; J91.0 Malignant pleural effusion; C34.92 Malignant neoplasm of unspecified part of left bronchus or lung; Z66 Do not resuscitate; Z51.5 Encounter for palliative care; Z96.652 Presence of left artificial knee joint; M81.0 Age-related osteoporosis without current pathological fracture; R91.8 Other nonspecific abnormal finding of lung field; E83.42 Hypomagnesemia; I48.91 Unspecified atrial fibrillation; E87.6 Hypokalemia; C50.912 Malignant neoplasm of unspecified site of left female breast; E88.09 Other disorders of plasma-protein metabolism, not elsewhere classified; Z90.89 Acquired absence of other organs; Z87.19 Personal history of other diseases of the digestive system; Z87.891 Personal history of nicotine dependence; Z90.710 Acquired absence of both cervix and uterus; Z90.722 Acquired absence of ovaries, bilateral; Z98.49 Cataract extraction status, unspecified eye; Z79.891 Long term (current) use of opiate analgesic; Z79.890 Hormone replacement therapy; Z88.5 Allergy status to narcotic agent
CPT/HCPCS: 32555; 36415; 71045; 71260; 80048; 80053; 82042; 82945; 82947; 83605; 83615; 83735; 83880; 84100; 84145; 84155; 84157; 84484; 85025; 85610; 85730; 87070; 87075; 87205; 88108; 88305; 89051; 92610; 93005; 93010; 93306; 94761; 94762; 96365-59; 96366-59; 96368; 96375-59; 97110; 97162; 97165; 97530; 97535; 99285-25; A9270; G0378; J0295; J0456; J1160; J1650; J1885; J1940; J3475; J7050; P9047; Q9967

== ENCOUNTER → 2024-08-28 | Outpatient (CLI) | payer MEDICARE, BC ==
[~2024-08-28] MED LIST changes: +AMOCLA875 PO; +CLOT10 MT; +FURO20 PO; +NYSTATIN100000 U10 MT; +OMEP20ER PO; +POTA10T PO
[2024-08-28 15:29] LABS: BASOPHILS ABSOLUTE AUTO 0.04 K/mm3 (0.00-0.23); BASOPHILS PERCENT AUTO 0 % (0-2); EOSINOPHILS ABSOLUTE AUTO 0.15 K/mm3 (0.00-0.68); EOSINOPHILS PERCENT AUTO 1 % (0-6); Hematocrit 35.6 % (33.0-51.0); Hemoglobin 11.1 g/dL (11.5-16.0); IMMATURE GRAN ABSOLUTE AUTO 0.11 K/mm3 (0.00-0.10); IMMATURE GRAN PERCENT AUTO 1 % (0-1); LYMPHOCYTES ABSOLUTE AUTO 1.24 K/mm3 (0.84-5.20); LYMPHOCYTES PERCENT AUTO 9 % (21-46); MONOCYTES ABSOLUTE AUTO 1.05 K/mm3 (0.16-1.47); MONOCYTES PERCENT AUTO 8 % (4-13); Mean Corpuscular HGB Conc 31.2 g/dL (31.5-36.5); Mean Corpuscular Volume 91 fL (80-100); NEUTROPHILS ABSOLUTE AUTO 11.36 K/mm3 (1.96-9.15); NEUTROPHILS PERCENT AUTO 81 % (41-73); NRBC ABSOLUTE 0.00 K/mm3 (0.00-0.02); NRBC Auto 0.0 /100 WBC (0.0-0.2); Platelet Count 351 K/mm3 (150-400); RDW Coefficient Variation 16.4 % (11.7-14.2); RDW Standard Deviation 55.0 fL (35.1-46.3)
[2024-08-28 15:45] LABS: Alanine Aminotransfer (ALT/SGP 16.0 U/L (12-78); Albumin, Blood 2.5 g/dL (3.4-5.0); Albumin/Globulin Ratio 0.7 (0.8-1.8); Anion Gap 10.0 mmol/L (3-11); Aspartate Aminotrans (AST/SGOT 24.0 U/L (12-37); Bilirubin, Total 0.3 mg/dL (0.1-1.0); Blood Urea Nitrogen 21.0 mg/dL (8-24); CO2, Blood 26.0 mmol/L (21-32); Calcium, Blood 9.5 mg/dL (8.5-10.1); Chloride, Blood 97.0 mmol/L (98-108); Creatinine, Blood 0.91 mg/dL (0.40-1.00); Globulin, Blood 3.8 g/dL (2.2-4.0); Glucose, Blood 101.0 mg/dL (70-99); Potassium, Blood 5.0 mmol/L (3.5-5.5); Sodium, Blood 128.0 mmol/L (136-145); Total Protein, Blood 6.3 g/dL (6.4-8.2)
== END ==
LOC: LAB SHORT 15:25 → LAB 15:25
PROVIDERS: Family Medicine
DX: R00.2 Palpitations (principal)
CPT/HCPCS: 80053; 84484; 85025; 85379